=== PATIENT | female | born 2000 | race African-American/Black ===

== ENCOUNTER 2025-04-16 10:09 | Emergency (ER) | payer SELFPAY ==
[~2025-04-16] VITALS: Ht 157.5 cm; Wt 55.0 kg
[2025-04-16 10:25] VITALS: O2SAT 100
[2025-04-16 11:20] LABS: CLARITY URINE CLOUDY (CLEAR); COLOR URINE RED (YELLOW); GLUCOSE URINE NEGATIVE (NEGATIVE); KETONES URINE NEGATIVE (NEGATIVE); LEUKOCYTE ESTERASE URINE 3+ (NEGATIVE); NITRITE URINE NEGATIVE (NEGATIVE); OCCULT BLOOD URINE 3+ (NEGATIVE); PH URINE 7.5 (4.5-8.0); PROTEIN URINE 2+ (NEGATIVE); SPECIFIC GRAVITY URINE 1.006 (1.005-1.030); UROBILINOGEN URINE 0.2 E.U./dL (0.2-1.0)
[2025-04-16 11:33] LABS: BACTERIA URINE 2+; RBC URINE 50-100 /hpf (0-2); SQUAMOUS EPITHELIAL CELL URINE 2+ /lpf (RARE/1+); WBC URINE TNTC /hpf (0-2); YEAST URINE NONE SEEN
[2025-04-16] MEDS ORDERED: PHEN-909 MT (11:47)
[2025-04-16] MEDS ORDERED: NITR100C MT (11:47)
[2025-04-16 12:02] VITALS: BP 118/84; PULSE 92; RESP 18; TEMP 36.6; O2SAT 100
[2025-04-18 05:09] LABS: CHLAMYDIA TRACHOMATIS NAA Negative (Negative); NEISSERIA GONORRHOEAE NAA Negative (Negative)
== END 2025-04-16 12:05 | disposition home or self-care (01) ==
LOC: ER 10:22
DX: N39.0 Urinary tract infection, site not specified (principal)
CPT/HCPCS: 81003; 81025; 87077; 87186; 87491; 87591; 99283